=== PATIENT | male | born 1980 | race Hispanic/Latino ===

== ENCOUNTER 2020-05-18 17:53 | Emergency (ER) | payer SELFPAY ==
[~2020-05-18] VITALS: Ht 177.8 cm; Wt 99.8 kg
[2020-05-18] MEDS ORDERED: KETOROLAC TROMETHAMINE 60 MG/2 ML VIAL IM ONE (18:15)
[2020-05-18] MEDS ORDERED: METFORMIN HCL850 MG PO (18:20)
--- NOTE | 2020-05-18 18:38 | Diagnostic Imaging Report ---
X-ray 3 views of the foot. HISTORY: Foot pain after trauma. COMPARISON: None available. FINDINGS: BONE: Comminuted and laterally displaced fracture at the base of the second metatarsal with probable intra-articular extension. No significant widening of the Lisfranc joint. Soft tissues: There is regional foot soft tissue swelling. IMPRESSION: Comminuted and laterally displaced fracture of the base of the second metatarsal with probable intra-articular extension. Although no significant joint space widening, this does not exclude Lisfranc ligamentous injury. Recommend CT of the foot without contrast for further catheterization of fracture pattern and to evaluate the Lisfranc ligament. Signed by: Juany Champion MD on 05/18/2020 6:34 PM
[2020-05-18] MEDS ORDERED: KETOROLAC TROMETHAMINE 60 MG/2 ML VIAL ONE (18:51)
[2020-05-18] MEDS ORDERED: HYDROCODONE/APAP 5MG-325MG TAB PO ONE (19:00)
--- NOTE | 2020-05-18 20:00 | Diagnostic Imaging Report ---
EXAM: CT of the left foot without contrast INDICATION: Foot pain after trauma COMPARISON: Left foot x-ray 05/18/2020. TECHNIQUE: Multidetector CT scanning of the left foot was performed. Coronal and sagittal multiplanar reformations were obtained. RADIATION DOSE: Total DLP: 40 mGy*cm Estimated effective dose: (DLP x 0.014 x size factor) mSv CTDIvol has been reviewed. It is below the limits set by the Radiation Protocol Committee (RPC). Dose modulation, iterative reconstruction, and/or weight based adjustment of the mA/kV was utilized to reduce the radiation dose to as low as reasonably achievable. FINDINGS: Bones: Nondisplaced medial first metatarsal base fracture. Comminuted displaced second metatarsal base fracture. Cortical fractures of third metatarsal base. Slightly displaced lateral cuneiform fracture. Tiny cortical flake fragment along the medial aspect of the first metatarsal metatarsal joint. Joints: The first and second metatarsal base airspace is intact. Subtle widening of the interspace between the second metatarsal base and the medial cuneiform. Soft Tissues: Soft tissue edema about the foot. IMPRESSION: Multiple metatarsal base and tarsal fractures about the Lisfranc joint as above. Recommend orthopedic referral and evaluation for Lisfranc joint stability. Signed by: Diogenes Meade DO on 05/18/2020 7:57 PM
--- NOTE | 2020-05-18 21:16 | Emergency Department Note ---
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 Denies any other injuries. No numbness, tingling, weakness. Historian: Patient Mortar Maker Required: No Onset (how long ago): minute(s) (20) Location: left foot Quality: sharp Radiation: Reports non-radiation Severity: severe Onset quality: sudden Timing of current episode: constant Progression: unchanged Chronicity: new Context: Reports trauma/injury; Denies recent illness Relieving factors: none Exacerbating factors: movement, other (weight bearing) Associated symptoms: Denies confusion, Denies chest pain, Denies cough, Denies diaphoresis, Denies fever/chills, Denies headaches, Denies loss of appetite, Denies malaise, Denies nausea/vomiting, Denies rash, Denies seizure, Denies shortness of breath, Denies weakness Past Medical/Family History Physician Review I have reviewed the patient's past medical and family history. Any updates have been documented here. Past Medical History Recent Fever: No Clinical Suspicion of Infectio: No New/Unexplained Change in Ment: No Past Medical History: Diabetes Social History Smoking Cessation: Current every day smoker Alcohol Use: Social Any Illegal Drug Use: No Review of Systems Review of Systems Constitutional: Denies chills, Denies fever EENTM: Denies nose congestion, Denies throat pain Respiratory: Denies cough, Denies dyspnea Gastrointestinal: Denies abdominal pain Musculoskeletal: Reports as per HPI Integumentary: Denies rash Neurological: Denies headache Psychological: Denies anxiety Endocrine: Reports other (no loss of smell/taste) Hematological/Lymphatic: Denies easy bleeding, Denies easy bruising Review of other systems: All other systems negative Physical Exam Related Data Allergies: Coded Allergies: No Known Allergies (Unverified , 05/18/20) Physical Exam CONSTITUTIONAL Constitutional: Present well-developed, Present well-nourished HENT HENT: Present normocephalic, Present atraumatic, Present oropharynx clear/moist, Present nose normal HENT L/R: Present left ext ear normal, Present right ext ear normal EYES Eyes: Reports PERRL, Reports conjunctivae normal NECK Neck: Present ROM normal PULMONARY Pulmonary: Present effort normal, Present breath sounds normal CARDIOVASCULAR Cardiovascular: Present regular rhythm, Present heart sounds normal, Present capillary refill normal, Present normal rate GASTROINTESTINAL Abdominal: Present soft, Present nontender, Present bowel sounds normal GENITOURINARY Genitourinary: Present exam deferred SKIN Skin: Present warm, Present dry, Present bruising (left medial anterior foot) MUSCULOSKELETAL Musculoskeletal: Present tenderness (mid foot, worse over 4th metatarsal), Present swelling (left volar foot), Present other (No brusing on plantar surface of foot) NEUROLOGICAL Neurological: Present alert, Present oriented x 3, Present no gross motor or sensory deficits PSYCHOLOGICAL Psychological: Present mood/affect normal, Present judgement normal Results Imaging Imaging Comments X-ray 3 views of the foot. HISTORY: Foot pain after trauma. COMPARISON: None available. FINDINGS: BONE: Comminuted and laterally displaced fracture at the base of the second metatarsal with probable intra-articular extension. No significant widening of the Lisfranc joint. Soft tissues: There is regional foot soft tissue swelling. IMPRESSION: Comminuted and laterally displaced fracture of the base of the second metatarsal with probable intra-articular extension. Although no significant joint space widening, this does not exclude Lisfranc ligamentous injury. Recommend CT of the foot without contrast for further catheterization of fracture pattern and to evaluate the Lisfranc ligament. Signed by: Juany Champion MD on 05/18/2020 6:34 PM EXAM: CT of the left foot without contrast INDICATION: Foot pain after trauma COMPARISON: Left foot x-ray 05/18/2020. TECHNIQUE: Multidetector CT scanning of the left foot was performed. Coronal and sagittal multiplanar reformations were obtained. RADIATION DOSE: Total DLP: 40 mGy*cm Estimated effective dose: (DLP x 0.014 x size factor) mSv CTDIvol has been reviewed. It is below the limits set by the Radiation Protocol Committee (RPC). Dose modulation, iterative reconstruction, and/or weight based adjustment of the mA/kV was utilized to reduce the radiation dose to as low as reasonably achievable. FINDINGS: Bones: Nondisplaced medial first metatarsal base fracture. Comminuted displaced second metatarsal base fracture. Cortical fractures of third metatarsal base. Slightly displaced lateral cuneiform fracture. Tiny cortical flake fragment along the medial aspect of the first metatarsal metatarsal joint. Joints: The first and second metatarsal base airspace is intact. Subtle widening of the interspace between the second metatarsal base and the medial cuneiform. Soft Tissues: Soft tissue edema about the foot. IMPRESSION: Multiple metatarsal base and tarsal fractures about the Lisfranc joint as above. Recommend orthopedic referral and evaluation for Lisfranc joint stability. Signed by: Diogenes Meade DO on 05/18/2020 7:57 PM Procedures Orthopedic Splinting/Casting Injury: Injury #1 Side: left Lower extremity immobilizer: posterior splint (with stirrup) Other orthopedic equipment: crutches Additional comments Performed by Andi (RN). I was present for the reeder portion of the procedure. N/V intact after splint placement. Assessment & Plan Medical Decision Making MDM Patient was accepted by ortho @ [facility]. Before transfer patient changed his mind and wished to be discharged. Patient aware of risk of long-term pain and disability of left foot. Patient states someone will drive him to [place] in the AM where he will see orthopedic doctor. Splinted foot and will D/C with crutches. 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 Assessment & Plan Final Impression: (1) Lisfranc dislocation (2) Metatarsal bone fracture (3) Fx cuneiform, foot-closed (4) Diabetes Depart Disposition: HOME, SELF-correction Meds Reported Medications Metformin Hcl (METFORMIN HCL) 850 Mg Tablet, 800 MG PO BID, #30 TAB 05/18/20 Medications in the ED Ketorolac Tromethamine 60 mg ONCE ONCE IM ; Start 05/18/20 at 18:15; Stop 05/18/20 at 18:16; Status OLIMPIA SHAH MD May 18, 2020 18:11
== END 2020-05-18 21:08 | disposition home or self-care (01) ==
LOC: FSED 18:27
DX: S92.322A Displaced fracture of second metatarsal bone, left foot, initial encounter for closed fracture (principal); S92.332A Displaced fracture of third metatarsal bone, left foot, initial encounter for closed fracture; W20.8XXA Other cause of strike by thrown, projected or falling object, initial encounter; Y92.008 Other place in unspecified non-institutional (private) residence as the place of occurrence of the external cause; E11.9 Type 2 diabetes mellitus without complications; F17.210 Nicotine dependence, cigarettes, uncomplicated
CPT/HCPCS: 29515; 73630; 73700; 96372; 99283; J1885